=== PATIENT | female | born 1950 | race Caucasian/White ===

== ENCOUNTER → 2019-06-26 08:28 | Outpatient (CLI) | payer MEDICARE, BC ==
[~2019-06-26 08:28] MED LIST: HYDROCODON-ACE1 EAC7 PO; PEPCID40 MG PO
[2019-07-15 07:38] VITALS: BMI 23.9
== END | disposition home or self-care (01) ==
LOC: D.NM 08:28
PROVIDERS: ATTEND Family Medicine
DX: R10.11 Right upper quadrant pain (principal); Z12.31 Encounter for screening mammogram for malignant neoplasm of breast

== ENCOUNTER → 2019-07-15 06:07 | Day surgery (SDC) | payer MEDICARE, BC ==
[2019-07-14 11:37] LABS: BASOPHILS 0.3 % (0-2); EOSINOPHILS 1.5 % (0-7); HEMATOCRIT 42.9 % (36.0-48.0); IMMATURE GRANULOCYTES 0.2 % (0-5); LYMPHOCYTES 26.9 % (15-50); MCHC 32.6 g/dL (31.0-37.0); MCV 94.9 fL (80.0-100.0); MEAN PLATELET VOLUME 9.3 fL (7.4-10.4); MONOCYTES 5.6 % (2-11); NEUTROPHILS 65.5 % (40-80); PLATELET COUNT 196 10x3/uL (130-400); RBC 4.52 10x6/uL (4.00-5.40); RDW 13.6 % (11.5-14.5); WBC 6.6 10x3/uL (4.8-10.8)
[2019-07-14 11:48] LABS: APTT 34.1 SECONDS (22.8-39.4); INR 0.99 (0.85-1.17); PROTIME 12.6 SECONDS (11.6-15.0)
[~2019-07-15] VITALS: Ht 162.6 cm; Wt 63.0 kg
[2019-07-15 07:38] VITALS: BP 136/612; Ht 162.6 cm; Wt 63.0 kg
== END | disposition home or self-care (01) ==
LOC: D.OPS 06:07 → D.PAN 08:15 → D.OPS 08:15
PROVIDERS: Anesthesiology; ATTEND Surgery
DX: K82.8 Other specified diseases of gallbladder (principal); R10.11 Right upper quadrant pain

== ENCOUNTER 2019-07-20 08:00 | Outpatient (CLI) | payer MEDICARE, BC ==
[2019-07-15 07:38] VITALS: BMI 23.9
== END 2019-07-20 23:59 | disposition home or self-care (01) ==
LOC: D.MAMMO 08:00
PROVIDERS: ATTEND Family Medicine
DX: Z85.3 Personal history of malignant neoplasm of breast (principal)

== ENCOUNTER → 2020-10-17 09:51 | Outpatient (CLI) | payer MEDICARE, BC ==
[2020-08-30 08:16] VITALS: BMI 24.0
[~2020-10-17 09:51] MED LIST changes: +VITAMIN E1000 UNI1 PO
[2020-10-17 10:50] LABS: THYROID STIMULATING HORMONE 1.57 uIU/mL (0.36-3.74)
== END | disposition home or self-care (01) ==
LOC: D.US 09:51
PROVIDERS: ATTEND Nurse Practitioner
DX: E04.1 Nontoxic single thyroid nodule (principal)

== ENCOUNTER 2020-11-14 17:31 | Day surgery (SDC) | payer MEDICARE, BC ==
[~2020-11-14] VITALS: Ht 162.6 cm; Wt 63.6 kg
[2020-11-14] VITALS (8 sets, daily range): BP systolic 119–156; BP diastolic 49–98; Ht 162.6 cm; Wt 63.6 kg
[2020-11-14 11:18] LABS: BASOPHILS 0.6 % (0-2); EOSINOPHILS 3.2 % (0-7); HEMATOCRIT 43.1 % (36.0-48.0); HEMOGLOBIN 13.9 g/dL (12-16); LYMPHOCYTE ABS# 1.99 10x3/uL (1.18-3.74); LYMPHOCYTES 37.1 % (15-50); MCHC 32.3 g/dL (31.0-37.0); MCV 93.1 fL (80.0-100.0); MEAN PLATELET VOLUME 9.7 fL (7.4-10.4); MONOCYTES 8.4 % (2-11); NEUTROPHIL ABS# 2.72 10x3/uL (1.56-6.13); NEUTROPHILS 50.7 % (40-80); PLATELET COUNT 217 10x3/uL (130-400); RBC 4.63 10x6/uL (4.00-5.40); RDW 13.8 % (11.5-14.5); WBC 5.4 10x3/uL (4.8-10.8)
[2020-11-14 11:26] LABS: CALC OSMOLALITY 281 mosm/kg (275-300); CALCIUM 8.9 mg/dL (8.5-10.1); CARBON DIOXIDE 31.1 mmol/L (21.0-32.0); CHLORIDE - SERUM 104 mmol/L (98-107); CREATININE - SERUM 0.8 mg/dL (0.6-1.3); GLUCOSE 99 mg/dL (74-106); POTASSIUM - SERUM 4.6 mmol/L (3.5-5.1); SODIUM 141 mmol/L (136-145); UREA NITROGEN 14 mg/dL (7-18); eGFR NON AFRICAN AMERICAN 75 mL/min (90-120)
--- NOTE | 2020-11-14 17:10 | NUR ---
PT STATES SHE IS NOT HURTING. STATES HER THROAT IS DRY. ICE CHIPS PROVIDED. PT TOLERATED. VSS.
[2020-11-15] VITALS: BP 113/51
--- NOTE | 2020-11-15 03:54 | NUR ---
PATIENT HAS DENIED PAIN, HAS TOLERATED THE FULL LIQUID DIET, SHE IS CURRENTLY RESTING IN BED WITH HER EYES CLOSED.
[2020-11-15 04:00] VITALS: BP 126/51
[2020-11-15 08:14] LABS: BASOPHILS 0.1 % (0-2); EOSINOPHILS 0.1 % (0-7); HEMATOCRIT 38.8 % (36.0-48.0); HEMOGLOBIN 12.4 g/dL (12-16); IMMATURE GRANULOCYTES 0.1 % (0-5); LYMPHOCYTE ABS# 1.54 10x3/uL (1.18-3.74); LYMPHOCYTES 16.6 % (15-50); MCH 29.8 pg (26.0-34.0); MCV 93.3 fL (80.0-100.0); MEAN PLATELET VOLUME 10.1 fL (7.4-10.4); MONOCYTES 6.3 % (2-11); NEUTROPHIL ABS# 7.13 10x3/uL (1.56-6.13); NEUTROPHILS 76.8 % (40-80); PLATELET COUNT 214 10x3/uL (130-400); RBC 4.16 10x6/uL (4.00-5.40); RDW 13.8 % (11.5-14.5)
[2020-11-15 08:15] LABS: WBC 9.3 10x3/uL (4.8-10.8)
[2020-11-15] MEDS ORDERED: SYNTHROID25 MCG PO (08:24)
[2020-11-15] MEDS ORDERED: ZOFRAN4 MG PO (08:24)
[2020-11-15] MEDS ORDERED: HYDROCODON-ACE1 EAC7 PO (08:25)
[2020-11-15 08:28] LABS: ALBUMIN 3.3 g/dL (3.4-5.0); ANION GAP 9.9 mmol/L (8-16); BILIRUBIN - TOTAL 0.39 mg/dL (0.2-1.3); CALCIUM 8.1 mg/dL (8.5-10.1); CARBON DIOXIDE 29.5 mmol/L (21.0-32.0); CREATININE - SERUM 0.9 mg/dL (0.6-1.3); POTASSIUM - SERUM 4.4 mmol/L (3.5-5.1); PROTEIN - SERUM 6.7 g/dL (6.4-8.2)
[2020-11-15 09:04] VITALS: BP 123/61
--- NOTE | 2020-11-15 10:26 | NUR ---
IV DCD WITH CATH TIP INTACT. DISCHARGE INSTRUCTIONS,STATES UNDERSTANDING. LEFT UNIT VIA WHEELCHAIR FOR TRANSPORT.
--- NOTE | 2020-12-15 11:12 | OP ---
PATIENT NAME: CHERYL MATHEWS MEDICAL RECORD: [id number] :48 LOCATION:D[facility] ED ADMISSION DATE: SURGEON: ALLA UMAÑA MD DATE OF OPERATION: 11/15/2020 PREOPERATIVE DIAGNOSIS: Thyroid nodules. POSTOPERATIVE DIAGNOSIS: Thyroid nodules. PROCEDURE: Total thyroidectomy. SURGEON: Chandler Mays MD RISK INVESTIGATOR: None. BLOOD LOSS: Minimal. ANESTHESIA: General. COMPLICATIONS: None. The risks and possible complications and alternatives of the procedure were explained to the patient. She elected to proceed. The discussion specifically included, but was not limited to bleeding requiring emergency reoperation, the alternative methods of diagnoses which could include a needle biopsy or nodule ultrasound-guided aspiration. The patient elected for thyroidectomy. HOSPITAL COURSE: The patient was conveyed to the operating room electively on 11/15/2020. General anesthesia was induced by anesthesia staff. The neck was sterilely prepped and draped. A transverse incision was accomplished, 2 fingerbreadths cephalad to the suprasternal notch. Sharp dissection was carried down through skin and subcutaneous tissue as well as the platysma. Subplatysmal flaps were created in a cephalad and caudad direction. I noted the strap muscles. They were divided in the midline. I first approached the right lobe of the thyroid gland. This was rolled medially and a tenaculum was placed. Dissection in the tracheoesophageal groove revealed the recurrent laryngeal nerve, which was traced into the larynx. I noted 1 parathyroid gland, which was retracted for protection. The superior pole vessels were sealed and divided with the Harmonic scalpel. Inferior pole vessels were sealed and divided with the Harmonic scalpel. I then dissected the thyroid gland off of the trachea and the larynx with the Harmonic scalpel. The right thyroid gland was sent to pathology as a specimen. I then approached the left lobe of the thyroid gland. The lobe was rotated medially with a tenaculum. Dissection in the tracheoesophageal groove revealed the recurrent laryngeal nerve, which was traced into the larynx and was protected during the entire operation. I identified both parathyroid glands, which were retracted and protected during the operation. The superior pole vessels were sealed and divided with the Harmonic scalpel. The inferior pole vessels were sealed and cauterized with the Harmonic scalpel. I then dissected the left lobe of the thyroid gland off of the larynx and trachea with the Harmonic scalpel. The left lobe of the thyroid gland was sent to the pathologist. A fibrin sealant was added to both thyroid fossa for additional hemostasis. There was no bleeding. The strap muscles were approximated in the midline with multiple interrupted horizontal mattress 3-0 Vicryl. The platysma was approximated with OPERATIVE REPORT [id number] CHERYL MATHEWS interrupted 3-0 Vicryl. The skin was approximated with a running intracuticular 3-0 Vicryl. Benzoin and Steri-Strips were applied and then a larger dressing. The patient was then extubated and conveyed to post-anesthesia care unit where she was in stable condition. Tongue was midline. She could say "E" easily. There was no shortness of breath. No stridor. TRANSINT:[id number] Voice Confirmation ID: [id number] DOCUMENT ID: [id number] ALLA UMAÑA MD at 1112 CC: [id number] DICTATION DATE: 12/14/20 1602 DESKTOP ANALYST: 12/15/[address] [facility] 11/15/20 [facility] [address] [place] [address]
== END 2020-11-15 10:28 | disposition home or self-care (01) ==
LOC: D.OPS 17:31 → D.MS 17:35 → D.OPS 11-15 10:28
PROVIDERS: ATTEND Surgery
DX: E04.1 Nontoxic single thyroid nodule (principal); R59.0 Localized enlarged lymph nodes; J43.9 Emphysema, unspecified

== ENCOUNTER → 2021-01-31 08:38 | Outpatient (CLI) | payer MEDICARE, BC ==
[2020-11-14 18:07] VITALS: BMI 24.0
[~2021-01-31 08:38] MED LIST changes: +SYNTHROID25 MCG PO; +ZOFRAN4 MG PO
[2021-01-31 09:48] LABS: T4 THYROXINE 9.1 ug/dL (4.7-13.3)
[2021-01-31 09:49] LABS: THYROID STIMULATING HORMONE 87.58 uIU/mL (0.36-3.74)
== END | disposition home or self-care (01) ==
LOC: D.LAB 08:38
PROVIDERS: ATTEND Nurse Practitioner
DX: E04.1 Nontoxic single thyroid nodule (principal)